=== PATIENT | female | born 1990 | race Caucasian/White ===

== ENCOUNTER → 2017-10-17 | Outpatient (CLI) | payer MEDICAID, OTHER ==
[~2017-10-17] MED LIST: AC500T PO; ACET1TAB43 PO; AMOX500C2 PO; BENZ100C18 PO; IBP600T1 PO; IBUP-1773 PO; PNV91TAB3 PO; PRD20T PO; PREN1TAB39; SERT25TA PO
--- NOTE | 2017-10-17 16:43 | Diagnostic Imaging Report ---
INDICATION: Supervision of . TECHNIQUE: Multiple real-time grayscale images were obtained over the gravid uterus. COMPARISON: None FINDINGS: Dixon intrauterine gestation is in cephalic position. The placenta posterior with no abruption or previa. Amniotic fluid volume appeared within normal limits. The placenta is posterior with no abruption or previa. The cervical length is at least 3.5 cm. It was nondilated. While no pathological finding at the anatomical survey is revealed, there was incomplete visualization of the cord's insertion as well as the cardiac structures. The measurements correlate with an average age of 19 weeks 3 days, sonographic date of confinement 03/10/2018. Biometrical measurements are as follows: Biparietal 4.3 cm, age 19 weeks 1 days. Head circumference 16.6 cm, age 19 weeks 2 days. Abdominal circumference 13.3 cm, age 18 weeks 6 days. Femur length 3.3 cm, age 20 weeks 1 days. Sonographic estimate age: 19 weeks 3 days. Sonographic estimated date of delivery: 03/10/18. Estimated Weight: 291 gm (+/- 42 gm). LMP percentile: n/a%. heart rate: 153 beats per minute. number: 1 of 1. IMPRESSION: 1. Single viable live IUP measuring 19 weeks 3 days. 2. While no pathological finding is revealed, there is limited visualization of the cords insertion as well as the cardiac structures. Dictated by: Dictated on workstation # [id number]
== END ==
LOC: RAD 15:09
PROVIDERS: ATTEND Family Medicine
DX: O09.292 Supervision of pregnancy with other poor reproductive or obstetric history, second trimester (principal); Z3A.19 19 weeks gestation of pregnancy
CPT/HCPCS: 76805

== ENCOUNTER 2018-02-10 13:16 | Outpatient (CLI) | payer SELFPAY ==
[~2018-02-10] VITALS: Ht 157.5 cm; Wt 80.7 kg
[2018-02-10 13:40] VITALS: BP 122/78
[2018-02-10 13:51] LABS: BILIRUBIN,URINE NEGATIVE (NEGATIVE); CLARITY,URINE CLEAR; COLOR,URINE YELLOW; GLUCOSE, URINE (UA) NEGATIVE (NEGATIVE); KETONES,URINE NEGATIVE (NEGATIVE); LEUKOCYTE ESTERASE ,URINE 1+ (NEGATIVE); NITRITE,URINE NEGATIVE (NEGATIVE); PH,URINE 5 (5-9); PROTEIN,URINE 2+ (NEGATIVE); UROBILINOGEN,URINE 1 MG/DL (NORMAL)
[2018-02-10 13:58] LABS: BACTERIA,URINE TRACE /HPF; WBC,URINE 0-2 /HPF
[2018-02-10 14:48] LABS: BILIRUBIN,URINE NEGATIVE (NEGATIVE); CLARITY,URINE CLEAR; COLOR,URINE YELLOW; GLUCOSE, URINE (UA) NEGATIVE (NEGATIVE); KETONES,URINE NEGATIVE (NEGATIVE); LEUKOCYTE ESTERASE ,URINE NEGATIVE (NEGATIVE); NITRITE,URINE NEGATIVE (NEGATIVE); PH,URINE 6 (5-9); PROTEIN,URINE NEGATIVE (NEGATIVE); UROBILINOGEN,URINE NORMAL (NORMAL)
[2018-02-10 14:57] LABS: BACTERIA,URINE NEGATIVE /HPF
--- NOTE | 2018-02-12 09:32 | Physician Query-Final Dx ---
JOSIANE DALE 02/12/18 0932: Clinic Account Progress/Dx Physician Query: Please give diagnosis Date of Service Feb 10, 2018 at 13:16 ADELE SÁNCHEZ MD 02/16/18 0754: Clinic Account Progress/Dx DIAGNOSIS: Diagnosis 1. IUP at 36 weeks, non-labor 2. Lost mucous plug JOSIANE DALE Feb 12, 2018 09:32 ADELE SÁNCHEZ MD Feb 16, 2018 07:54
== END 2018-02-10 15:40 | disposition home or self-care (01) ==
LOC: WSo 13:16 → LDRP 13:17 → WSo 15:40
PROVIDERS: ATTEND Family Medicine
DX: O26.893 Other specified pregnancy related conditions, third trimester (principal); Z3A.36 36 weeks gestation of pregnancy
CPT/HCPCS: 81000; 87088; 99214

== ENCOUNTER 2018-02-23 14:55 | Outpatient (CLI) | payer SELFPAY ==
[~2018-02-23] VITALS: Ht 157.5 cm; Wt 82.6 kg
--- NOTE | 2018-02-23 14:50 | NUR ---
ANGELO MARIO presented to unit via ambulation from home, accompanied by s/o, with c/o CONTRACTIONS,LOW BACK PAIN. ANGELO MARIO weighed, gowned, voided, and to bed. EFHM and TOCO applied, VS taken. ANGELO MARIO oriented to bed controls, call light, TV, heat, and A/C controls.
[2018-02-23 15:05] VITALS: BP 132/93
[2018-02-23 15:21] LABS: BILIRUBIN,URINE NEGATIVE (NEGATIVE); CLARITY,URINE CLEAR; COLOR,URINE YELLOW; GLUCOSE, URINE (UA) 1+ (NEGATIVE); KETONES,URINE NEGATIVE (NEGATIVE); LEUKOCYTE ESTERASE ,URINE NEGATIVE (NEGATIVE); NITRITE,URINE NEGATIVE (NEGATIVE); PH,URINE 6 (5-9); PROTEIN,URINE NEGATIVE (NEGATIVE); UROBILINOGEN,URINE NORMAL (NORMAL)
[2018-02-23 15:33] LABS: BACTERIA,URINE TRACE /HPF; WBC,URINE RARE /HPF
--- NOTE | 2018-02-23 16:05 | NUR ---
notified dr bang of patient c/o fhr pattern, contraction pattern, ua results. new orders received.
[2018-02-23 17:10] VITALS: BP 168/102
[2018-02-23 17:15] VITALS: BP 137/85
--- NOTE | 2018-02-23 17:37 | NUR ---
AMBULATED OUT OF WS WITH S/O AT SIDE TO HOME SELF CARE, LABOR RULED OUT. NO S/S OF DISTRESS NOTED.
== END 2018-02-23 17:37 | disposition home or self-care (01) ==
LOC: LDRP 14:55 → WSo 14:55
PROVIDERS: ATTEND Family Medicine
DX: O47.02 False labor before 37 completed weeks of gestation, second trimester (principal); Z3A.20 20 weeks gestation of pregnancy
CPT/HCPCS: 81000; 99214

== ENCOUNTER 2018-03-03 18:54 | Inpatient (IN) | payer BC | END 2018-03-06 12:35 | disposition home or self-care (01) | LOC: LDRP 18:54 ==